=== PATIENT | female | born 1955 | race Caucasian/White ===

== ENCOUNTER → 2017-11-25 | Outpatient (CLI) | payer BC ==
[~2017-11-25] MED LIST: Atarax10 MG PO; BENADRYL25 MG PO; DESL5 PO; EPIN.3I IM; ERGO400; Flonase 0.05% N16 GM; GLUC500; MAGNESIUM400 MG; METO100ER PO; MONT10T PO; OCUVITE EYE +1 EACH; OMEP40CA12 PO; SUCR1 PO; THEO PO; THEO100ERB PO; TIOT18 INH; Vitamin A10000 UNIT
== END | disposition home or self-care (01) ==
LOC: PLD 08:05 → LAB SHORT 08:05
DX: D22.4 Melanocytic nevi of scalp and neck (principal)
CPT/HCPCS: 88305

== ENCOUNTER → 2018-03-04 | Outpatient (CLI) | payer BC | END | disposition home or self-care (01) | LOC: OLS 16:56 → LAB SHORT 16:56 | PROVIDERS: Nurse Practitioner Women's Health | DX: Z12.4 Encounter for screening for malignant neoplasm of cervix (principal); Z91.89 Other specified personal risk factors, not elsewhere classified | CPT/HCPCS: 87624; G0123 ==

== ENCOUNTER → 2019-07-08 | Outpatient (CLI) | payer MEDICARE, BC ==
[2019-07-10 15:07] LABS: HPV 16 Negative (Negative); HPV 18 Negative (Negative); HPV OTHER HR TYPES Negative (Negative)
== END | disposition home or self-care (01) ==
LOC: LAB 17:43 → LAB SHORT 17:43
PROVIDERS: Nurse Practitioner Women's Health
DX: Z12.4 Encounter for screening for malignant neoplasm of cervix (principal); Z91.89 Other specified personal risk factors, not elsewhere classified
CPT/HCPCS: 87624; G0123

== ENCOUNTER → 2019-07-15 | Outpatient (CLI) | payer MEDICARE, BC ==
[2019-07-15 16:47] LABS: Campylobacter Sp Not Detected (NOT DETECT); Cryptosporidium Not Detected (NOT DETECT); Cyclospora Cayetanensis Not Detected (NOT DETECT); E. Coli O157 Not Detected (NOT DETECT); Enteroaggregative E. coli-EAEC Not Detected (NOT DETECT); Enteropathogenic E. coli-EPEC Not Detected (NOT DETECT); Enterotoxigenic E. coli-ETEC Not Detected (NOT DETECT); Plesiomonas Shigelloides Not Detected (NOT DETECT); Salmonella Sp Not Detected (NOT DETECT); Shiga Toxin-prod E. coli-STEC Not Detected (NOT DETECT); Shigella/Enteroin E. coli-EIEC Not Detected (NOT DETECT); Vibrio Cholerae Not Detected (NOT DETECT); Vibrio Sp Not Detected (NOT DETECT); Yersinia Enterocolitica Not Detected (NOT DETECT)
[2019-07-15 16:48] LABS: Adenovirus F 40/41 Not Detected (NOT DETECT); Astrovirus Not Detected (NOT DETECT); Entamoeba Histolytica Not Detected (NOT DETECT); Giardia Lamblia Not Detected (NOT DETECT); Norovirus GI/GII Not Detected (NOT DETECT); Rotavirus A Not Detected (NOT DETECT); Sapovirus Not Detected (NOT DETECT)
== END | disposition home or self-care (01) ==
LOC: OLS 06:51 → LAB SHORT 06:51 → LAB FUT 07-14 17:35
PROVIDERS: Family Medicine
DX: R19.7 Diarrhea, unspecified (principal)
CPT/HCPCS: 0097U

== ENCOUNTER 2021-09-04 11:02 | Day surgery (SDC) | payer MEDICARE, BC ==
[~2021-09-04] VITALS: Ht 157.5 cm; Wt 77.2 kg
[2021-09-04] MEDS ORDERED: Lisinopril2.5 MG (12:21)
== END 2021-09-04 13:28 | disposition home or self-care (01) ==
LOC: ORSCSDS 11:02
PROVIDERS: Internal Medicine Gastroenterology
PROC: 0DBK8ZX Excision of Ascending Colon, Via Natural or Artificial Opening Endoscopic, Diagnostic (ICD-10-PCS; principal; 2021-09-04 12:30)
PROC: 0DBN8ZX Excision of Sigmoid Colon, Via Natural or Artificial Opening Endoscopic, Diagnostic (ICD-10-PCS; principal; 2021-09-04 12:30)
DX: Z12.11 Encounter for screening for malignant neoplasm of colon (principal); Z86.010 Personal history of colon polyps; D12.2 Benign neoplasm of ascending colon; K63.5 Polyp of colon; K21.9 Gastro-esophageal reflux disease without esophagitis; K57.30 Diverticulosis of large intestine without perforation or abscess without bleeding; E66.9 Obesity, unspecified; Z68.31 Body mass index [BMI] 31.0-31.9, adult; Z79.899 Other long term (current) drug therapy
CPT/HCPCS: 88305; J2704; J7120

== ENCOUNTER → 2022-03-29 | Outpatient (CLI) | payer MEDICARE, BC ==
[~2022-03-29] MED LIST changes: +Lisinopril2.5 MG
== END | disposition home or self-care (01) ==
LOC: LAB SHORT 12:30 → LAB 12:30
DX: R82.90 Unspecified abnormal findings in urine (principal)
CPT/HCPCS: 87086; 87147

== ENCOUNTER → 2024-06-05 | Outpatient (CLI) | payer MEDICARE, BC | LOC: LAB 15:39 → LAB SHORT 15:39 | DX: N39.0 Urinary tract infection, site not specified (principal) | CPT/HCPCS: 87086 ==

== ENCOUNTER → 2025-07-06 | Outpatient (CLI) | payer MEDICARE, BC | LOC: LAB SHORT 13:27 → LAB 13:27 | DX: N39.0 Urinary tract infection, site not specified (principal) | CPT/HCPCS: 87077; 87086; 87186 ==